=== PATIENT | male | born 1995 | race African-American/Black ===

== ENCOUNTER 2017-09-26 20:56 | Emergency (ER) | payer OTHER ==
[~2017-09-26] VITALS: Ht 188 cm; Wt 84.4 kg
[~2017-09-26 20:56] MED LIST: NOHOMEMEDICATIONS; PHENERGAN-CODE120 ML PO; ZPAK PO
[2017-09-26] MEDS ORDERED: ALEVE220 MG PO (21:12)
[2017-09-26] MEDS ORDERED: NORFLEX100 MG PO (22:02)
[2017-09-26] MEDS ORDERED: NAPROSYN500 MG PO (22:02)
== END 2017-09-26 22:38 | disposition home or self-care (01) ==
LOC: ER 20:56
DX: M62.830 Muscle spasm of back (principal)